=== PATIENT | female | born 1960 | race Two or more races ===

== ENCOUNTER 2020-10-15 15:56 | Emergency (ER) | payer MEDICAID ==
[~2020-10-15] VITALS: Ht 154.9 cm; Wt 81.0 kg
[~2020-10-15 15:56] MED LIST: LEVO75TA PO
--- NOTE | 2020-10-15 21:03 | NUR ---
PT PRESENTS TO ER FOR LEFT KNEE PAIN, PT STATES SHE STEPPED OFF A CURB AND FELT A POP IN THE LEFT KNEE AND IMMEDIATELY FELT PAIN, PT STATES IT IS HARD TO WALK AND SIT AND STAND AND PUT WEIGHT ON THE AFFECTED KNEE
[2020-10-15] MEDS ORDERED: HYDROcodone/APAP 5/325 TABLET PO ONE (21:30)
[2020-10-15] MEDS ORDERED: HYDROcodone/APAP 5/325 TABLET ONE (22:01)
--- NOTE | 2020-10-15 22:17 | NUR ---
Assist RN: re-evaluation done. patient medicated for pain. xiomara wrap applied. crutches provided. discharged with prescription and instruction. verbalized understanding.
[2020-10-15 22:18] VITALS: BP 123/80
== END 2020-10-15 22:20 | disposition home or self-care (01) ==
LOC: ED 21:30
DX: S83.92XA Sprain of unspecified site of left knee, initial encounter (principal); E03.9 Hypothyroidism, unspecified; Z86.39 Personal history of other endocrine, nutritional and metabolic disease; X50.0XXA Overexertion from strenuous movement or load, initial encounter; Y93.89 Activity, other specified; Y92.410 Unspecified street and highway as the place of occurrence of the external cause; Y99.8 Other external cause status
CPT/HCPCS: 29530; 99283